=== PATIENT | male | born 1955 | race African-American/Black ===

== ENCOUNTER 2017-11-07 09:47 | Emergency (ER) | payer OTHER ==
[~2017-11-07] VITALS: Ht 188 cm; Wt 140.0 kg
[2017-11-07] MEDS ORDERED: KETOROLAC 60MG/2ML VIAL IM ONE (12:45)
[2017-11-07] MEDS ORDERED: OXYCODONE HCL/ACETAMINOPHEN 5/325MG TABLET PO ONE (12:45)
[2017-11-07] MEDS ORDERED: DEXAMETHASONE 4MG/ML 1ML VIAL IM ONE (12:45)
[2017-11-07] MEDS ORDERED: DEXAMETHASONE 4MG/ML 1ML VIAL IM SCH (13:15)
[2017-11-07 14:20] VITALS: BP 154/81
== END 2017-11-07 14:23 | disposition home or self-care (01) ==
LOC: ER 10:14
DX: M54.5 Low back pain (principal); I10 Essential (primary) hypertension
CPT/HCPCS: 96372; 99284; J1100; J1885